=== PATIENT | male | born 1965 | race Caucasian/White ===

== ENCOUNTER 2018-09-20 16:58 | Observation (INO) ==
--- NOTE | 2018-09-20 17:51 | Emergency Department Note ---
Disposition Clinical Impression: Abdominal pain, Back pain, Chest pain Disposition: Still a Patient Condition: Fair Referrals: Elma Delacruz CNP [Primary Care Provider] - Forms: ED Satisfaction Letter, Work/School Release General Adult HPI - General Chief complaint: ED Abdominal Pain Stated complaint: Back / Abd Pain Time Seen by Provider: 09/20/18 17:05 Source: patient Limitations: no limitations - History of Present Illness Pain Scale: 10 - Related Data Home Medications Medication Instructions Recorded Confirmed Atorvastatin Calcium [Lipitor] 80 mg PO HS 04/19/16 08/16/16 Calcium Carbonate [Calcium] 500 mg PO BID 04/19/16 08/16/16 Cyclobenzaprine [Flexeril] 10 mg PO TID 04/19/16 08/16/16 Docusate [Colace] 100 mg PO BID 04/19/16 08/16/16 Duloxetine HCl [Cymbalta] 60 mg PO DAILY 04/19/16 08/16/16 Ergocalciferol (VITAMIN D2) 50,000 unit PO MO 04/19/16 08/16/16 [Vitamin D2 (50,000 UNIT)] Insulin DETEMIR [Levemir Flextouch] 30 unit SQ HS 04/19/16 08/16/16 Lisinopril [Zestril] 20 mg PO HS 04/19/16 08/16/16 Metformin HCl [Glucophage] 1,000 mg PO BID 04/19/16 08/16/16 Oxycodone HCl/Acetaminophen 1 tab PO Q6H PRN 04/19/16 08/16/16 [Percocet 7.5-325 mg Tablet] Pregabalin [Lyrica] 300 mg PO BID 04/19/16 08/16/16 diazePAM [Valium] 5 mg PO DAILY PRN 04/19/16 08/16/16 raNITIdine HCl [Zantac] 150 mg PO BID 04/19/16 08/16/16 FentaNYL PATCH [Duragesic] 25 mcg TD Q72H 06/14/16 08/16/16 Previous Rx's Medication Instructions Recorded OxyCODONE/APAP 5/325 [Percocet 1 each PO Q6HR PRN #26 tablet 08/16/16 5/325 MG] Allergies Allergy/AdvReac Type Severity Reaction Status Date / Time bee venom Allergy Anaphylaxis Uncoded 09/29/16 07:25 Past Medical History - Past Medical History Medical history: Reports: diabetes, GERD, hyperlipidemia, hypertension, other Surgical history: Reports: appendectomy, other Psychiatric history: Reports: depression - Social History Smoking Status: Current every day smoker Smokeless Tobacco Status: No Alcohol use: Reports: none Drug use: Reports: none Physical Exam - General Limitations: no limitations General appearance: alert, in no apparent distress Course Vital Signs Temperature 98.3 F 09/20/18 17:01 Pulse Rate 73 09/20/18 17:01 Respiratory Rate 18 09/20/18 17:01 Blood Pressure 123/70 09/20/18 17:01 O2 Sat by Pulse Oximetry 99 09/20/18 17:01 Temperature 98.2 F 09/20/18 20:35 Pulse Rate 68 09/20/18 20:35 Respiratory Rate 18 09/20/18 20:35 Blood Pressure 133/84 09/20/18 20:35 O2 Sat by Pulse Oximetry 95 09/20/18 20:35 Oxygen Delivery Oxygen Delivery Room Air Medical Decision Making - Lab Data Lab results reviewed: Yes I reviewed the patient's lab results. Result diagrams: 09/20/18 17:29 09/20/18 17:29 Lab Results 09/20/18 09/20/18 09/20/18 Range/Units 17:29 17:29 17:29 WBC 16.0 H (4.3-11.1) K/mcL RBC 4.86 (4.19-5.50) M/mcL Hgb 14.6 (12.9-16.9) g/dL Hct 43.8 (37.5-50.1) % MCV 90.1 (83.0-100.0) fL MCH 30.0 (28.0-33.3) pg MCHC 33.3 (31.6-35.5) g/dL RDW 12.5 (11.5-14.5) % Plt Count 350 (140-400) K/mcL MPV 8.7 L (9.4-12.4) fL Immature Gran % 0.5 (0-4) % Seg Neutrophils % 58.7 % Lymphocytes % 32.4 % Monocytes % 6.2 % Eosinophils % 1.9 % Basophils % 0.3 % Neutrophils # 9.4 H (1.6-8.9) K/mcL Lymphocytes # 5.2 H (0.6-4.6) K/mcL Monocytes # 1.0 (0.0-1.3) K/mcL Eosinophils # 0.3 (0.0-0.6) K/mcL Basophils # 0.1 (0.0-0.2) K/mcL Sodium 142 (136-145) mEq/L Potassium 3.6 (3.5-5.1) mEq/L Chloride 110 H (98-107) mEq/L Carbon Dioxide 23 (23-29) mEq/L BUN 10 (6-20) mg/dL Creatinine 0.65 L (0.70-1.30) mg/dL Est GFR ( Amer) > 60 (> 60) Est GFR (Non-Af Amer) > 60 (> 60) BUN/Creatinine Ratio 15 (6-26) Glucose 108 H (70-105) mg/dL Calculated Osmolality 294 (280-300) Calcium 9.7 (8.6-10.3) mg/dL Urine Color Yellow (Yellow) Urine Clarity Clear (Clear) Urine pH 7.5 (5.0-8.0) pH Units Ur Specific [place] 1.012 (1.010-1.025) Urine Protein Negative (Neg-Trace) mg/dL Urine Glucose (UA) Normal (Normal) mg/dL Urine Ketones Negative (Negative) mg/dL Urine Blood Negative (Negative) Urine Nitrite Negative (Negative) Urine Bilirubin Negative (Negative) Urine Urobilinogen Normal (Normal) mg/dL Ur Leukocyte Esterase Negative (Negative) Ur Culture Indicated? NO (NO) Attestation Statement - Attestation Attestation: I examined this patient and my medical decision-making was reviewed with the DOOR FRAME BUILDER/PA/Advanced Practice Nurse/Resident Physician. I agree with the documented findings, disposition and treatment plan as described except to the extent set forth below. Patient presents with bilateral lower abdominal pain mostly on the left which began gradually 3 days ago now sharp and constant. He does have some testicular pain. I did see blood in the urine prior to his arrival here. He does have a pain specialist with a pain contract. He does have a baclofen pump for chronic pain. He denies any dysuria or urinary frequency, penile discharge, blood in the stool. Did have a temperature 101.2 degrees orally 2 days ago but not since that time. He did use ibuprofen 800 mg at 1:00 today and acetaminophen around 4:00 in the morning. On my exam does have minimal to moderate pain bilateral lower abdomen and minimal pain and upper abdomen but does not have rigidity, rebound, guarding. CT scan, labs, results are pending. 1750 Patient did have a headache earlier but at this time has no headache whatsoever. He does have a neck fusion but in the amount that he is able to move his neck on my exam he does not have nuchal rigidity 1751 I did go back and speak with the patient again. He does have some left-sided chest pain. Initially told me it was present for only 6 months and only when he moves however further questioning stated this was new pain, recurrent pain started at 8:15 tonight's going on for 30 minutes straight, no associated diaphoresis or dyspnea. No exertional component. No pleuritic aspect. No pain or swelling of the lower extremities. He does have some pain with palpation left sternal border which causes minimal facial wincing so this certainly could be musculoskeletal but this is a 53-year-old man who is a smoker with a history of high blood pressure and high cholesterol so further cardiac evaluation will be started including a chest x-ray, EKG and troponin test. Care was transitioned to Dr. Renteria 2051 I did review the patient's EKG showing normal sinus rhythm with a rate of 63 and without acute ischemic change 2107
[2018-09-20 17:54] LABS: Bilirubin,Urine Negative (Negative); Blood,Urine Negative (Negative); Clarity,Urine Clear (Clear); Color,Urine Yellow (Yellow); Glucose,Urine (UA) Normal (Normal); Ketones,Urine Negative (Negative); Leukocyte Esterase,Urine Negative (Negative); Nitrite,Urine Negative (Negative); PH,Urine 7.5 pH Units (5.0-8.0); Protein,Urine Negative (Neg-Trace); Specific Gravity,Urine 1.012 (1.010-1.025); Urobilinogen,Urine Normal (Normal)
[2018-09-20 17:58] LABS: Basophils # 0.1 K/mcL (0.0-0.2); Basophils % 0.3 %; Eosinophils # 0.3 K/mcL (0.0-0.6); Eosinophils % 1.9 %; Hematocrit 43.8 % (37.5-50.1); Hemoglobin 14.6 g/dL (12.9-16.9); Immature Granulocytes % 0.5 % (0-4); Lymphocytes # 5.2 K/mcL (0.6-4.6); Lymphocytes % 32.4 %; Mean Corpuscular HGB Conc 33.3 g/dL (31.6-35.5); Mean Corpuscular Volume 90.1 fL (83.0-100.0); Mean Platelet Volume 8.7 fL (9.4-12.4); Monocytes % 6.2 %; Neutrophils # 9.4 K/mcL (1.6-8.9); Platelet Count 350 K/mcL (140-400); Red Blood Count 4.86 M/mcL (4.19-5.50); Red Cell Distribution Width 12.5 % (11.5-14.5); Segmented Neutrophils % 58.7 %
--- NOTE | 2018-09-20 18:03 | Emergency Department Note ---
Disposition Clinical Impression: Abdominal pain Qualifiers: Abdominal location: right lower quadrant Qualified Code(s): R10.31 - Right lower quadrant pain Back pain Qualifiers: Back pain location: low back pain Chronicity: acute Back pain laterality: right Sciatica presence: without sciatica Qualified Code(s): M54.5 - Low back pain Chest pain Qualifiers: Chest pain type: unspecified Qualified Code(s): R07.9 - Chest pain, unspecified Disposition: Still a Patient Condition: Fair Referrals: Elma Delacruz CNP [Primary Care Provider] - Forms: ED Satisfaction Letter, Work/School Release Time of Disposition: 20:55 General Adult HPI - General Chief complaint: ED Abdominal Pain Stated complaint: Back / Abd Pain Time Seen by Provider: 09/20/18 17:05 Source: patient Limitations: no limitations Nursing Notes Reviewed: Yes Vital Signs Reviewed: Yes - History of Present Illness HPI Narrative: 53 year old male presents for abdominal and back pain. Patient states that he's been having this pain for couple days but severely worsened today. Describes sharp throbbing pain that starts suprapubic region and radiates to RLQ and right low back. It is exacerbated by sitting and better with laying down. Patient went to see PCP today and was told there was a lot of blood in urine and sent to ED. Patient reports dysuria today. Also reports pain between the shoulder blades. Reports acid taste in mouth. Admits fever yesterday of 101, no fever since. Admits "a little" chest pain. Admits nausea without emesis. Admits headache that is now resolved. Admits worsened constipation. Denies shortness of breath, diarrhea. Patient reports medical history of chronic back pain treated with regular tylenol and ibuprofen, baclofen pump, and dual spine stimulator. Also reports diabetes, HTN, HLD, DDD. Denies history of kidney stones. Denies any blood thinner. Current smoker. Denies alcohol and drugs. Pain Scale: 10 - Related Data Home Medications Medication Instructions Recorded Confirmed Atorvastatin Calcium [Lipitor] 80 mg PO HS 04/19/16 08/16/16 Calcium Carbonate [Calcium] 500 mg PO BID 04/19/16 08/16/16 Cyclobenzaprine [Flexeril] 10 mg PO TID 04/19/16 08/16/16 Docusate [Colace] 100 mg PO BID 04/19/16 08/16/16 Duloxetine HCl [Cymbalta] 60 mg PO DAILY 04/19/16 08/16/16 Ergocalciferol (VITAMIN D2) 50,000 unit PO MO 04/19/16 08/16/16 [Vitamin D2 (50,000 UNIT)] Insulin DETEMIR [Levemir Flextouch] 30 unit SQ HS 04/19/16 08/16/16 Lisinopril [Zestril] 20 mg PO HS 04/19/16 08/16/16 Metformin HCl [Glucophage] 1,000 mg PO BID 04/19/16 08/16/16 Oxycodone HCl/Acetaminophen 1 tab PO Q6H PRN 04/19/16 08/16/16 [Percocet 7.5-325 mg Tablet] Pregabalin [Lyrica] 300 mg PO BID 04/19/16 08/16/16 diazePAM [Valium] 5 mg PO DAILY PRN 04/19/16 08/16/16 raNITIdine HCl [Zantac] 150 mg PO BID 04/19/16 08/16/16 FentaNYL PATCH [Duragesic] 25 mcg TD Q72H 06/14/16 08/16/16 Previous Rx's Medication Instructions Recorded OxyCODONE/APAP 5/325 [Percocet 1 each PO Q6HR PRN #26 tablet 08/16/16 5/325 MG] Allergies Allergy/AdvReac Type Severity Reaction Status Date / Time bee venom Allergy Anaphylaxis Uncoded 09/29/16 07:25 Constitutional: Denies: fever, chills Eyes: Denies: eye pain, eye discharge ENT ED: Denies: ear pain, throat pain Cardiovascular: Reports: chest pain. Denies: palpitations Respiratory: Denies: cough, dyspnea Gastrointestinal: Reports: abdominal pain, nausea Genitourinary: Reports: dysuria. Denies: urgency Musculoskeletal: Reports: back pain. Denies: neck pain Integumentary: Denies: rash, abrasion Neurological: Denies: headache, weakness Past Medical History - Past Medical History Medical history: Reports: diabetes, GERD, hyperlipidemia, hypertension, other Surgical history: Reports: appendectomy, other Psychiatric history: Reports: depression - Social History Smoking Status: Current every day smoker Smokeless Tobacco Status: No Alcohol use: Reports: none Drug use: Reports: none Physical Exam - General Limitations: no limitations General appearance: alert, in no apparent distress - Head Head exam: atraumatic, normocephalic - Eye Eye exam: Present: PERRL, EOMI - ENT ENT exam: normal oropharynx, mucous membranes moist - Neck Neck exam: Present: normal inspection - Chest Chest inspection: Present: normal inspection, symmetric chest wall rise - Respiratory Respiratory exam: Present: normal lung sounds bilaterally. Absent: respiratory distress - Cardiovascular Cardiovascular exam: Present: regular rate, normal rhythm - Abdominal Exam Abdominal exam: Present: soft, tenderness (pain in suprapubic and RLQ reproduced with palpation to epigastrium ), normal bowel sounds. Absent: distention, guarding, rebound, rigidity - Extremities Exam Extremities exam: Present: normal inspection. Absent: tenderness, pedal edema, joint swelling - Back Exam Back exam: Present: normal inspection, tenderness (tenderness to palpation of right low back ). Absent: muscle spasm - Neurological Exam Neurological exam: Present: alert, oriented X3 - Skin Skin exam: Present: warm, dry, intact, normal color Course Course Narrative: 53 year old male with history of chronic back pain presents for abdominal and back pain. Reports dysuria and had large amount of blood on UA. Patient is alert and oriented and hemodynamically stable. On exam, pain to suprapubic and RLQ abdomen are reproduced with palpation to epigastrium. Right low back pain is reproduced with palpation. Will check labwork and CT abd/pelvis. - Reevaluation(s) Reevaluation #1: CBC shows leukocytosis. BMP is unremarkable. UA is negative, there is no blood. CT abd/pelvis shows no stones or other source of hematuria. CT shows new possible mass of pancreas. Will check CT abd/pelvis with IV contrast. Will check lipase. Patient is informed of results. Patient voiced understanding. Patient states that pain is improved because he's been laying down. Time: 19:16 Reevaluation #2: Patient complains of chest pain that started at 20:[address] Will check EKG and trop. CXR shows atelectasis and central airway congestion. Time: 20:51 Reevaluation #3: CT abd/pelvis and cardiac eval pending. Will sign out to night team. Time: 20:53 Vital Signs Temperature 98.3 F 09/20/18 17:01 Pulse Rate 73 09/20/18 17:01 Respiratory Rate 18 09/20/18 17:01 Blood Pressure 123/70 09/20/18 17:01 O2 Sat by Pulse Oximetry 99 09/20/18 17:01 Temperature 98.2 F 09/20/18 20:35 Pulse Rate 68 09/20/18 20:35 Respiratory Rate 18 09/20/18 20:35 Blood Pressure 133/84 09/20/18 20:35 O2 Sat by Pulse Oximetry 95 09/20/18 20:35 Oxygen Delivery Oxygen Delivery Room Air Medical Decision Making - MDM Narrative Medical decision making narrative: Chest X-Ray 09/20/18 19:13 IMPRESSION: Shallow inflation with findings of subsegmental atelectasis and central airway congestion. No consolidation. D/ / Misbah Newton / Misbah Newton Interpreting Provider: Misbah Newton - Medical Records Medical records reviewed: Yes I reviewed the patient's medical records. - Lab Data Lab results reviewed: Yes I reviewed the patient's lab results. Result diagrams: 09/20/18 17:29 09/20/18 17:29 Lab Results 09/20/18 09/20/18 09/20/18 Range/Units 17:29 17:29 17:29 WBC 16.0 H (4.3-11.1) K/mcL RBC 4.86 (4.19-5.50) M/mcL Hgb 14.6 (12.9-16.9) g/dL Hct 43.8 (37.5-50.1) % MCV 90.1 (83.0-100.0) fL MCH 30.0 (28.0-33.3) pg MCHC 33.3 (31.6-35.5) g/dL RDW 12.5 (11.5-14.5) % Plt Count 350 (140-400) K/mcL MPV 8.7 L (9.4-12.4) fL Immature Gran % 0.5 (0-4) % Seg Neutrophils % 58.7 % Lymphocytes % 32.4 % Monocytes % 6.2 % Eosinophils % 1.9 % Basophils % 0.3 % Neutrophils # 9.4 H (1.6-8.9) K/mcL Lymphocytes # 5.2 H (0.6-4.6) K/mcL Monocytes # 1.0 (0.0-1.3) K/mcL Eosinophils # 0.3 (0.0-0.6) K/mcL Basophils # 0.1 (0.0-0.2) K/mcL Sodium 142 (136-145) mEq/L Potassium 3.6 (3.5-5.1) mEq/L Chloride 110 H (98-107) mEq/L Carbon Dioxide 23 (23-29) mEq/L BUN 10 (6-20) mg/dL Creatinine 0.65 L (0.70-1.30) mg/dL Est GFR ( Amer) > 60 (> 60) Est GFR (Non-Af Amer) > 60 (> 60) BUN/Creatinine Ratio 15 (6-26) Glucose 108 H (70-105) mg/dL Calculated Osmolality 294 (280-300) Calcium 9.7 (8.6-10.3) mg/dL Urine Color Yellow (Yellow) Urine Clarity Clear (Clear) Urine pH 7.5 (5.0-8.0) pH Units Ur Specific [place] 1.012 (1.010-1.025) Urine Protein Negative (Neg-Trace) mg/dL Urine Glucose (UA) Normal (Normal) mg/dL Urine Ketones Negative (Negative) mg/dL Urine Blood Negative (Negative) Urine Nitrite Negative (Negative) Urine Bilirubin Negative (Negative) Urine Urobilinogen Normal (Normal) mg/dL Ur Leukocyte Esterase Negative (Negative) Ur Culture Indicated? NO (NO) - Radiology Data Radiology results reviewed: Yes I reviewed the patient's radiology results.
[2018-09-20 18:14] LABS: BUN/Creatinine Ratio 15 (6-26); Blood Urea Nitrogen 10 mg/dL (6-20); Calcium 9.7 mg/dL (8.6-10.3); Carbon Dioxide 23 mEq/L (23-29); Chloride 110 mEq/L (98-107); Glucose 108 mg/dL (70-105); Osmolality,Calculated 294 (280-300); Potassium 3.6 mEq/L (3.5-5.1); Sodium 142 mEq/L (136-145); eGFR For Non-African Americans > 60 (> 60)
[2018-09-20] MEDS ORDERED: Isovue-370 500 ML INFUS..BTL IV ONE (19:13)
[2018-09-20 21:09] LABS: Troponin I < 0.03 ng/mL (< 0.04)
[2018-09-20 21:17] LABS: Lipase 9 Units/L (11-82)
--- NOTE | 2018-09-20 21:17 | Emergency Department Note ---
Disposition Clinical Impression: Abdominal pain Qualifiers: Abdominal location: right lower quadrant Qualified Code(s): R10.31 - Right lower quadrant pain Back pain Qualifiers: Back pain location: low back pain Chronicity: acute Back pain laterality: right Sciatica presence: without sciatica Qualified Code(s): M54.5 - Low back pain Chest pain Qualifiers: Chest pain type: unspecified Qualified Code(s): R07.9 - Chest pain, unspecified Disposition: Still a Patient Condition: Fair Referrals: Elma Delacruz CNP [Primary Care Provider] - Forms: ED Satisfaction Letter, Work/School Release Abdominal Pain HPI - General Chief Complaint: ED Abdominal Pain Stated Complaint: Back / Abd Pain Time Seen by Provider: 09/20/18 17:05 Source: patient Mode of arrival: ambulatory Limitations: no limitations Nursing Notes Reviewed: Yes Vital Signs Reviewed: Yes - History of Present Illness Pain Scale: 10 - Related Data Home Medications Medication Instructions Recorded Confirmed Atorvastatin Calcium [Lipitor] 80 mg PO HS 04/19/16 08/16/16 Calcium Carbonate [Calcium] 500 mg PO BID 04/19/16 08/16/16 Cyclobenzaprine [Flexeril] 10 mg PO TID 04/19/16 08/16/16 Docusate [Colace] 100 mg PO BID 04/19/16 08/16/16 Duloxetine HCl [Cymbalta] 60 mg PO DAILY 04/19/16 08/16/16 Ergocalciferol (VITAMIN D2) 50,000 unit PO MO 04/19/16 08/16/16 [Vitamin D2 (50,000 UNIT)] Insulin DETEMIR [Levemir Flextouch] 30 unit SQ HS 04/19/16 08/16/16 Lisinopril [Zestril] 20 mg PO HS 04/19/16 08/16/16 Metformin HCl [Glucophage] 1,000 mg PO BID 04/19/16 08/16/16 Oxycodone HCl/Acetaminophen 1 tab PO Q6H PRN 04/19/16 08/16/16 [Percocet 7.5-325 mg Tablet] Pregabalin [Lyrica] 300 mg PO BID 04/19/16 08/16/16 diazePAM [Valium] 5 mg PO DAILY PRN 04/19/16 08/16/16 raNITIdine HCl [Zantac] 150 mg PO BID 04/19/16 08/16/16 FentaNYL PATCH [Duragesic] 25 mcg TD Q72H 06/14/16 08/16/16 Previous Rx's Medication Instructions Recorded OxyCODONE/APAP 5/325 [Percocet 1 each PO Q6HR PRN #26 tablet 08/16/16 5/325 MG] Allergies Allergy/AdvReac Type Severity Reaction Status Date / Time bee venom Allergy Anaphylaxis Uncoded 09/29/16 07:25 Constitutional: Denies: fever, chills Eyes: Denies: eye pain, eye discharge ENT ED: Denies: ear pain, throat pain Cardiovascular: Reports: chest pain. Denies: palpitations Respiratory: Denies: cough, dyspnea Gastrointestinal: Reports: abdominal pain, nausea Genitourinary: Reports: dysuria. Denies: urgency Musculoskeletal: Reports: back pain. Denies: neck pain Integumentary: Denies: rash, abrasion Neurological: Denies: headache, weakness Abdominal Pain PMH - Past Medical History Medical history: Reports: diabetes, GERD, hyperlipidemia, hypertension, other Male Surgical History: Reports: appendectomy, other Psychiatric history: Reports: depression - Social History Smoking status: Current every day smoker Alcohol use: Reports: none Drug use: Reports: none Physical Exam - General Limitations: no limitations General appearance: alert, in no apparent distress Course Course Narrative: DID NOT SEE PATIENT. NOTE OPENED IN ERROR. Vital Signs Temperature 98.3 F 09/20/18 17:01 Pulse Rate 73 09/20/18 17:01 Respiratory Rate 18 09/20/18 17:01 Blood Pressure 123/70 09/20/18 17:01 O2 Sat by Pulse Oximetry 99 09/20/18 17:01 Temperature 98.2 F 09/20/18 20:35 Pulse Rate 68 09/20/18 20:35 Respiratory Rate 18 09/20/18 20:35 Blood Pressure 133/84 09/20/18 20:35 O2 Sat by Pulse Oximetry 95 09/20/18 20:35 Oxygen Delivery Oxygen Delivery Room Air Abdominal Pain - Lab Data Result diagrams: 09/20/18 17:29 09/20/18 17:29 Lab Results 09/20/18 09/20/18 09/20/18 Range/Units 17:29 17:29 17:29 WBC 16.0 H (4.3-11.1) K/mcL RBC 4.86 (4.19-5.50) M/mcL Hgb 14.6 (12.9-16.9) g/dL Hct 43.8 (37.5-50.1) % MCV 90.1 (83.0-100.0) fL MCH 30.0 (28.0-33.3) pg MCHC 33.3 (31.6-35.5) g/dL RDW 12.5 (11.5-14.5) % Plt Count 350 (140-400) K/mcL MPV 8.7 L (9.4-12.4) fL Immature Gran % 0.5 (0-4) % Seg Neutrophils % 58.7 % Lymphocytes % 32.4 % Monocytes % 6.2 % Eosinophils % 1.9 % Basophils % 0.3 % Neutrophils # 9.4 H (1.6-8.9) K/mcL Lymphocytes # 5.2 H (0.6-4.6) K/mcL Monocytes # 1.0 (0.0-1.3) K/mcL Eosinophils # 0.3 (0.0-0.6) K/mcL Basophils # 0.1 (0.0-0.2) K/mcL Sodium 142 (136-145) mEq/L Potassium 3.6 (3.5-5.1) mEq/L Chloride 110 H (98-107) mEq/L Carbon Dioxide 23 (23-29) mEq/L BUN 10 (6-20) mg/dL Creatinine 0.65 L (0.70-1.30) mg/dL Est GFR ( Amer) > 60 (> 60) Est GFR (Non-Af Amer) > 60 (> 60) BUN/Creatinine Ratio 15 (6-26) Glucose 108 H (70-105) mg/dL Calculated Osmolality 294 (280-300) Calcium 9.7 (8.6-10.3) mg/dL Troponin I < 0.03 (< 0.04) ng/mL Lipase 9 L (11-82) Units/L Urine Color Yellow (Yellow) Urine Clarity Clear (Clear) Urine pH 7.5 (5.0-8.0) pH Units Ur Specific [place] 1.012 (1.010-1.025) Urine Protein Negative (Neg-Trace) mg/dL Urine Glucose (UA) Normal (Normal) mg/dL Urine Ketones Negative (Negative) mg/dL Urine Blood Negative (Negative) Urine Nitrite Negative (Negative) Urine Bilirubin Negative (Negative) Urine Urobilinogen Normal (Normal) mg/dL Ur Leukocyte Esterase Negative (Negative) Ur Culture Indicated? NO (NO)
[2018-09-20] MEDS ORDERED: Naloxone 0.4 MG/ML INJ IVP PRN (22:39)
[2018-09-20] MEDS ORDERED: Acetaminophen 325 MG TABLET PO PRN (22:39)
--- NOTE | 2018-09-20 22:46 | Internal Med History&Physical ---
Date of Encounter: 09/21/18 Time of Encounter: 22:45 Internal Medicine - H&P: HPI Chief complaint: Abdominal Pain History of present illness: Mr. Terry is a 53 year old male with a past medical history of diabetes, hypertension and hyperlipidemia who presented to the ED with lower abdominal pain. Patient states Monday he began having left lower abdominal discomfort. Symptoms progressively got worse. Patient states pain is throbbing and constant which begins in the left lower quadrant and radiates across his lower abdomen to the right side and to his back. Pain is aggravated with sitting and alleviated when he lays down. No change with food. Patient reports 1 episode of watery diarrhea yesterday. Denies any dark tarry stools or blood in his stools. Sympt oms also associated with indigestion, bloating and nausea but no vomiting. He states he took his temperature the day before yesterday and found to be 101.2. Reports chills. Patient reports 1 episode of dysuria this afternoon. Subsequently went to see his nurse practitioner who sent him to the ED. Past Med Surg Social Fam HX - Past Medical History Medical history: diabetes, GERD, hyperlipidemia, hypertension, other Additional medical history: RCTS. DM II. LUMBAR 5/ HNP CAUSING STENOSIS. LUMBAR FACET ARTHROPATHY 3/4, 4/5, 5/. SEVERE CERVICAL STENOSIS 5/6, 6/7. FACET ARTHROPATHY THOUGHOUT CERVICAL SPINE. DISH Psychiatric history: depression - Past Surgical History Surgical History: appendectomy, other Additional surgical history: 10/2013 RIGHT THORACIC MASS REMOVAL. 01/2014 ACDF CERVICAL. 02/02/15 EPIDURAL INJECTION LOWER BACK. 10/30/14 L5-S1 LUMBAR FUSION @[facility]. 05/08/15 C2-3-4 CERVICAL STIMULATOR @[facility]. 08/26/15 EGD/COLONOSCOPY. 04/2015 DUAL SPINE CORD STIMULATOR. 2016 BCTR. NERVE ABLATION. 06/08/16 CYST REMOVED FROM LLE. 08/16/16 RIGHT FLANK MASS EXCISION @[facility]/DR [facility] - Social History Smoking Status: Current every day smoker Smokeless Tobacco Status: No Alcohol use: none Drug use: none - Family History Mother History Unknown: Yes Living Status: Still Living Father History Unknown: Yes Living Status: Still Living Internal Medicine - H&P: Meds Atorvastatin Calcium [Lipitor] 80 mg PO HS 04/19/16 [History] Calcium Carbonate [Calcium] 500 mg PO BID 04/19/16 [History] Docusate [Colace] 100 mg PO DAILY PRN 04/19/16 [History] Duloxetine HCl [Cymbalta] 60 mg PO BID 04/19/16 [History] Insulin DETEMIR [Levemir Flextouch] 28 unit SQ HS 04/19/16 [History] Lisinopril [Zestril] 20 mg PO HS 04/19/16 [History] Metformin HCl [Glucophage] 1,000 mg PO BID 04/19/16 [History] Pregabalin [Lyrica] 300 mg PO BID 04/19/16 [History] Aspirin [Lo-Dose Aspirin EC] 81 mg PO DAILY 09/20/18 [History] Ibuprofen 800 mg PO TID PRN 09/20/18 [History] Linagliptin [Tradjenta] 5 mg OP DAILY 09/20/18 [History] Pioglitazone HCl 30 mg PO DAILY 09/20/18 [History] Allergy/AdvReac Type Severity Reaction Status Date / Time bee venom Allergy Anaphylaxis Uncoded 09/29/16 07:25 All Systems PM: A 10-system review of systems was performed and is negative for pertinent findings except as documented above in the HPI. - Constitutional Constitutional: no chills, no fever(s), no night sweats - EENT Eyes: no change in vision, no discharge, no pain, no photophobia Ears: no ear discharge, no ear pain, no tinnitus Nose, mouth and throat: no dysphagia, no nasal discharge, no neck pain, no sore throat - Cardiovascular Cardiovascular ROS IM: no chest pain, no diaphoresis, no dyspnea, no lightheadedness, no palpitations, no syncope - Respiratory Respiratory: no cough, no dyspnea, no wheezing, no excessive phlegm production - Gastrointestinal Gastrointestinal: no abdominal pain, no diarrhea, no hematemesis, no hematochezia, no melena, no nausea, no vomiting - Musculoskeletal Musculoskeletal ROS IM: no numbness, no tingling - Integumentary Integumentary IM: no rash, no unusual bruising - Neurological Neurological ROS: no confusion, no convulsions, no focal weakness, no numbness, no tingling, no tremor(s) - Hematologic/Lymphatic Hematologic/Lymphatic: no easy bruising - Constitutional Vitals: Temp Pulse Resp BP Pulse Ox 98.2 F 68 18 133/84 95 09/20/18 20:35 09/20/18 20:35 09/20/18 20:35 09/20/18 20:35 09/20/18 20:35 Exam: General: Alert and oriented Skin:Normal color, no rash, no lesions. HEENT:EOM, pupils equal, round and reactive. Cardiovascular:Normal S1 & S2, no rubs, murmurs or gallops. No JVD. Pulse regular. Lungs:Normal breath sounds, no wheezes or crackles. Abdomen:Soft, with diffuse tenderness more prominent in the left lower quadrant, no rigidity or guarding. Extremities:No deformity, no edema or tenderness, no joint swelling or clubbing. Neurological:Normal cognition and motor skills. Pulses:Carotid and radial pulses normal +2. Positive Left-sided CVA tenderness; Rest of the physical exam is non contri butory Internal Med - H&P Results - Labs CBC & Chem 7: 09/21/18 04:36 09/21/18 04:36 Labs: Short CBC 09/20/18 Range/Units 17:29 WBC 16.0 H (4.3-11.1) K/mcL Hgb 14.6 (12.9-16.9) g/dL Hct 43.8 (37.5-50.1) % Plt Count 350 (140-400) K/mcL Neutrophils # 9.4 H (1.6-8.9) K/mcL BMP 09/20/18 17:29 Sodium 142 Potassium 3.6 Chloride 110 H Carbon Dioxide 23 BUN 10 Creatinine 0.65 L Glucose 108 H Calcium 9.7 Cardiac Enzymes 09/20/18 Range/Units 17:29 Troponin I < 0.03 (< 0.04) ng/mL Urine 09/20/18 Range/Units 17:29 Urine Color Yellow (Yellow) Urine Clarity Clear (Clear) Urine pH 7.5 (5.0-8.0) pH Units Ur Specific [place] 1.012 (1.010-1.025) Urine Protein Negative (Neg-Trace) mg/dL Urine Glucose (UA) Normal (Normal) mg/dL - Impressions ITS Impressions Abdomen/Pelvis CT 09/20/18 17:36 IMPRESSION: No acute inflammatory change or etiology for hematuria is demonstrated. No renal calculi. New rounded appearance of the tail the pancreas. An underlying mass can have this appearance. Further evaluation with contrast-enhanced CT is recommended. D/ / Misbah Newton / Misbah Newton Interpreting Provider: Misbah Newton Abdomen/Pelvis CT 09/20/18 19:13 IMPRESSION: Within the pancreatic tail, there is a subtle area of hypoenhancement, mainly seen on the arterial phase imaging. Although focal area of pancreatitis would be considered, there is only minimal if any peripancreatic fat stranding. A pancreatic mass is still of concern. At this point, prompt but nonemergent pancreatic MRI is recommended. Also correlate with any laboratory evidence pancreatitis. There are wedge-shaped areas of hypoenhancement within both kidneys (which were not visualized on the noncontrast scan from earlier). The appearance is most compatible with pyelonephritis. Renal infarcts would also be included in the differential, but this case that is considered less likely. Correlation with urinalysis is recommended. D/ / Ron Ascencio MD / Ron Ascencio MD Interpreting Provider: Ron Ascencio MD Chest X-Ray 09/20/18 19:13 IMPRESSION: Shallow inflation with findings of subsegmental atelectasis and central airway congestion. No consolidation. D/ / Misbah Newton / Misbah Newton Interpreting Provider: Misbah Newton - Assessment and plan (1) Abdominal pain Current Visit: Yes Status: Acute Assessment and plan: Left lower abdominal pain with radiation across the lower abdomen. CT scan s howed no evidence of small or large bowel abnormalities. There is findings on CT for possible pyelonephritis. Additionally, patient had significant left- sided CVA tenderness. However it could not be determined if this was secondary to his chronic back pain versus new CVA tenderness secondary to possible pyelonephritis. Area of hypoenhancement also seen within the pancreatic tail possibly secondary to pancreatitis the lipase levels were within normal limits. We will treat for pyelonephritis. Qualifiers: Abdominal location: left lower quadrant Qualified Code(s): R10.32 - Left lower quadrant pain (2) Abnormal finding on CT scan Current Visit: Yes Status: Acute Assessment and plan: Subtle area of hypoenhancement within the pancreatic tail seen on CT of the abdomen. Although focal area of pancreatitis would be considered, there is only minimal if any peripancreatic fat stranding. A pancreatic mass is still of concern. radiology is recommending MRI, however, due to patient's implanted nerve stimulator and pain pump he cannot have an MRI done. Consider further discussion with radiology on how to proceed. (3) Dysuria Current Visit: Yes Status: Acute Assessment and plan: Patient reports episodes of dysuria in the setting of elevated white blood. CT scan findings of possible pyelonephritis, though UA was unremarkable. Will start on IV antibiotics. We will obtain blood culture and urine culture (4) Diabetes Current Visit: Yes Status: Acute Assessment and plan: diabetic diet. Blood glucose checks. Insulin sliding scale. Qualifiers: Diabetes mellitus type: type 2 Qualified Code(s): E11.9 - Type 2 diabetes mellitus without complications (5) DISH (diffuse idiopathic skeletal hyperostosis) Current Visit: Yes Status: Acute (6) DVT prophylaxis Current Visit: Yes Status: Acute Assessment and plan: subcutaneous heparin - Time Spent With Patient Total time spent is greater than 50% in coordination of care (as documented) at patient's floor/unit and/or counseling patient:
[2018-09-20] MEDS: 0.9 % Sodium Chloride 1,000 ML IVC SCH (23:08)
[2018-09-20] MEDS: *HR* Heparin 5,000 UNIT/ML VIAL SQ SCH (23:09)
[2018-09-20] MEDS ORDERED: Dextrose Gel 15 GM/37.5 ML TUBE PO PRN ×2 (23:24)
[2018-09-20] MEDS ORDERED: D5% in Water 1,000 ML IVC PRN (23:24)
[2018-09-20] MEDS ORDERED: *HR* Dextrose 50 % in Water (Syg) 50 ML SYRINGE IVP PRN (23:24)
[2018-09-21] MEDS: Insulin LISPRO 300 UNITS/3 ML VIAL SQ SCH ×4 (00:03→16:08)
[2018-09-21] MEDS: Ketorolac 30 MG/ML VIAL IVP PRN ×4 (00:05→21:32)
[2018-09-21] MEDS: cefTRIAXone 1,000 MG in Water for inj. (sterile) 20 ML 10 ML IVPB SCH (00:05)
[2018-09-21] MEDS: OXYCODONE Oral CONC 10 MG/0.5 ML ORAL.SYG SL PRN ×3 (04:33→18:03)
[2018-09-21 05:09] LABS: Basophils # 0.1 K/mcL (0.0-0.2); Basophils % 0.4 %; Eosinophils # 0.4 K/mcL (0.0-0.6); Eosinophils % 3.3 %; Hemoglobin 13.9 g/dL (12.9-16.9); Immature Granulocytes % 0.5 % (0-4); Lymphocytes # 4.1 K/mcL (0.6-4.6); Lymphocytes % 35.3 %; Mean Corpuscular HGB Conc 32.3 g/dL (31.6-35.5); Mean Corpuscular Hemoglobin 29.5 pg (28.0-33.3); Mean Corpuscular Volume 91.3 fL (83.0-100.0); Mean Platelet Volume 8.7 fL (9.4-12.4); Monocytes # 0.8 K/mcL (0.0-1.3); Monocytes % 7.1 %; Neutrophils # 6.2 K/mcL (1.6-8.9); Platelet Count 321 K/mcL (140-400); Red Blood Count 4.71 M/mcL (4.19-5.50); Red Cell Distribution Width 12.7 % (11.5-14.5); Segmented Neutrophils % 53.4 %
[2018-09-21 05:15] LABS: Alanine Aminotransferase 9 Units/L (7-52); Albumin 3.9 g/dL (3.5-5.7); Albumin/Globulin Ratio 1.9 (1.1-2.2); Alkaline Phosphatase 73 Units/L (34-104); Aspartate Amino Transferase 9 Units/L (13-39); BUN/Creatinine Ratio 17 (6-26); Bilirubin,Total 0.5 mg/dL (0.3-1.0); Blood Urea Nitrogen 11 mg/dL (6-20); Calcium 9.1 mg/dL (8.6-10.3); Carbon Dioxide 23 mEq/L (23-29); Chloride 112 mEq/L (98-107); Globulin 2.1 g/dL (2.4-3.5); Glucose 142 mg/dL (70-105); Osmolality,Calculated 296 (280-300); Potassium 3.7 mEq/L (3.5-5.1); Sodium 142 mEq/L (136-145); eGFR For Non-African Americans > 60 (> 60)
[2018-09-21] MEDS: *HR* Heparin 5,000 UNIT/ML VIAL SQ SCH ×3 (05:27→21:32)
--- NOTE | 2018-09-21 08:10 | Internal Med Progress Note ---
Hospitalist Progress Note - Encounter Date of Encounter: 09/21/18 Time of Encounter: 08:09 - Subjective Interval History: Patient was seen and examined at bedside currently synovitis. He is tolerating his meals this time. Continues to experience right upper quadrant pain. Denies any other pain or discomfort at this time - Exam Vitals: Temp Pulse Resp BP Pulse Ox 98.5 F 54 16 106/68 93 09/21/18 07:47 09/21/18 07:47 09/21/18 07:47 09/21/18 07:47 09/21/18 07:47 Exam: General: Alert and oriented Skin:Normal color, no rash, no lesions. HEENT:EOM, pupils equal, round and reactive. Cardiovascular:Normal S1 & S2, no rubs, murmurs or gallops. No JVD. Pulse regular. Lungs:Normal breath sounds, no wheezes or crackles. Abdomen:Soft, with diffuse tenderness more prominent in the R upper quadrant, no rigidity or guarding. Extremities:No deformity, no edema or tenderness, no joint swelling or clubbing. Neurological:Normal cognition and motor skills. Pulses:Carotid and radial pulses normal +2. Positive Right-sided CVA tenderness; Rest of the physical exam is non contributory - Assessment and Plan (1) Abdominal pain Current Visit: Yes Status: Acute Assessment and Plan: Left lower abdominal pain with radiation across the lower abdomen. CT scan showed no evidence of small or large bowel abnormalities. There is findings on CT for possible pyelonephritis. Additionally, patient had significant left- sided CVA tenderness. However it could not be determined if this was secondary to his chronic back pain versus new CVA tenderness secondary to possible pyelonephritis. Area of hypoenhancement also seen within the pancreatic tail possibly secondary to pancreatitis the lipase levels were within normal limits. We will treat for pyelonephritis. 09/21 Above assessment patient was experiencing right upper abdominal tenderness which radiated across his lower abdomen. CT findings suggesting possible pyelonephritis T did have some right sided CVA tenderness however patient does have chronic back pain. There was also an area of hypoenhancement within the pancreatic tail possibly secondary to pancreatitis-lipase levels are normal. Patient does admit that he has been losing weight approximately 10 pounds within the past 4 weeks. He also has been experiencing some diarrhea which he states is unusual he normally has constipation -Treated pyelonephritis with Rocephin Unable to obtain MRI due to stimulator and pain pump we will obtain right upper quadrant ultrasound -GI has been consulted -We will obtain GI panel -Zofran for nausea continue with pain medications -Advance diet as tolerated (2) Abnormal finding on CT scan Current Visit: Yes Status: Acute Assessment and Plan: Subtle area of hypoenhancement within the pancreatic tail seen on CT of the abdomen. Although focal area of pancreatitis would be considered, there is only minimal if any peripancreatic fat stranding. A pancreatic mass is still of concern. radiology is recommending MRI, however, due to patient's implanted nerve stimulator and pain pump he cannot have an MRI done. Consider further discussion with radiology on how to proceed. 09/21 We will call pain clinic and see if stimulator is compatible with MRI We will obtain right upper quadrant ultrasound GIs been consulted and appreciate recommendations (3) Dysuria Current Visit: Yes Status: Acute Assessment and Plan: Patient reports episodes of dysuria in the setting of elevated white blood. CT scan findings of possible pyelonephritis, though UA was unremarkable. Will start on IV antibiotics. We will obtain blood culture and urine culture 09/21 Continue Rocephin (4) Diabetes Current Visit: Yes Status: Acute Assessment and Plan: diabetic diet. Blood glucose checks. Insulin sliding scale. -09/21 Continue Accu-Cheks before meals at bedtime with sliding scale insulin (5) DISH (diffuse idiopathic skeletal hyperostosis) Current Visit: Yes Status: Acute Assessment and Plan: 1 patient will follow-up with pain clinic as outpatient continue with baclofen pump as well as nerve stimulator (6) DVT prophylaxis Current Visit: Yes Status: Acute Assessment and Plan: subcutaneous heparin - Time Spent with Patient Total time spent is greater than 50% in coordination of care (as documented) at patient's floor/unit and/or counseling patient: Internal Medicine: Result - Labs CBC & Chem 7: 09/21/18 04:36 09/21/18 04:36 Labs: Short CBC 09/20/18 09/21/18 Range/Units 17:29 04:36 WBC 16.0 H 11.6 H (4.3-11.1) K/mcL Hgb 14.6 13.9 (12.9-16.9) g/dL Hct 43.8 43.0 (37.5-50.1) % Plt Count 350 321 (140-400) K/mcL Neutrophils # 9.4 H 6.2 (1.6-8.9) K/mcL BMP 09/20/18 09/21/18 17:29 04:36 Sodium 142 142 Potassium 3.6 3.7 Chloride 110 H 112 H Carbon Dioxide 23 23 BUN 10 11 Creatinine 0.65 L 0.65 L Glucose 108 H 142 H Calcium 9.7 9.1 Cardiac Enzymes 09/20/18 09/20/18 Range/Units 17:29 22:06 Troponin I < 0.03 < 0.03 (< 0.04) ng/mL Liver Function 09/21/18 Range/Units 04:36 Total Bilirubin 0.5 (0.3-1.0) mg/dL AST 9 L (13-39) Units/L ALT 9 (7-52) Units/L Alkaline Phosphatase 73 (34-104) Units/L Albumin 3.9 (3.5-5.7) g/dL Urine 09/20/18 Range/Units 17:29 Urine Color Yellow (Yellow) Urine Clarity Clear (Clear) Urine pH 7.5 (5.0-8.0) pH Units Ur Specific [place] 1.012 (1.010-1.025) Urine Protein Negative (Neg-Trace) mg/dL Urine Glucose (UA) Normal (Normal) mg/dL - Impressions Impressions Abdomen/Pelvis CT 09/20/18 17:36 IMPRESSION: No acute inflammatory change or etiology for hematuria is demonstrated. No renal calculi. New rounded appearance of the tail the pancreas. An underlying mass can have this appearance. Further evaluation with contrast-enhanced CT is recommended. D/ / Misbah Newton / Misbah Newton Interpreting Provider: Misbah Newton Abdomen/Pelvis CT 09/20/18 19:13 IMPRESSION: Within the pancreatic tail, there is a subtle area of hypoenhancement, mainly seen on the arterial phase imaging. Although focal area of pancreatitis would be considered, there is only minimal if any peripancreatic fat stranding. A pancreatic mass is still of concern. At this point, prompt but nonemergent pancreatic MRI is recommended. Also correlate with any laboratory evidence pancreatitis. There are wedge-shaped areas of hypoenhancement within both kidneys (which were not visualized on the noncontrast scan from earlier). The appearance is most compatible with pyelonephritis. Renal infarcts would also be included in the differential, but this case that is considered less likely. Correlation with urinalysis is recommended. D/ / Ron Ascencio MD / Ron Ascencio MD Interpreting Provider: Ron Ascencio MD Chest X-Ray 09/20/18 19:13 IMPRESSION: Shallow inflation with findings of subsegmental atelectasis and central airway congestion. No consolidation. D/ / Misbah Newton / Misbah Newton Interpreting Provider: Misbah Newton Consult Discharge Plan - Plan Referrals: Elma Delacruz, [facility] [Primary Care Provider] - (1) Abdominal pain Qualifiers: Abdominal location: left lower quadrant Qualified Code(s): R10.32 - Left lower quadrant pain (4) Diabetes Qualifiers: Diabetes mellitus type: type 2 Qualified Code(s): E11.9 - Type 2 diabetes mellitus without complications
[2018-09-21] MEDS: 0.9 % Sodium Chloride 1,000 ML IVC SCH (09:07)
[2018-09-21] MEDS: Aspirin Enteric Coated 81 MG Tablet PO SCH (09:07)
--- NOTE | 2018-09-21 10:40 | Gastroenterology Consult Note ---
<Kostas Kearney - Last Filed: 09/21/18 10:38> Date of Encounter: 09/21/18 Time of Encounter: 10:38 - Assessment and plan (1) Abnormal finding on CT scan Status: Acute Assessment and plan: CT reveals small area of hypo-enhancement within the pancreatic tail measuring 1.8 cm. No other lesions noted. Unclear the etiology of this lesion, inflammation versus malignancy. At this point inflammation is felt to be less likely. Recommend slowly advancing diet as tolerated. Will check CA-19-9. Follow-up with GI as an outpatient for endoscopic ultrasound for further characterization of this lesion. - Time Spent With Patient Total time spent is greater than 50% in coordination of care (as documented) at patient's floor/unit and/or counseling patient: GI History of Present Illness - Data of Consult Patient: new to practice Consult date: 09/21/18 Requesting Physician: Yordy Hdez MD - Consult Narrative Reason for consult: Pancreatic Tail Mass History of present illness: Mr. Terry is a 53 year old male with history of type 2 diabetes who presents with left lower quadrant abdominal pain. Patient states that the abdominal pain started several days prior to arrival and had started as left lower quadrant and move towards the midline. He denies any nausea or vomiting or diarrhea. He states he has never had anything like this before. He states at times the pain radiates to his back. He reports a 10 pound unintentional weight loss in the last month. He denies any personal history of pancreatitis. Colonoscopy: Unknown EGD: Unknown Past Med Surg Social Fam HX - Past Medical History Medical history: diabetes, GERD, hyperlipidemia, hypertension, other Additional medical history: RCTS. DM II. LUMBAR 5/1 HNP CAUSING STENOSIS. LUMBAR FACET ARTHROPATHY 3/4, 4/5, 5/1. SEVERE CERVICAL STENOSIS 5/6, 6/7. FACET ARTHROPATHY THOUGHOUT CERVICAL SPINE. DISH Psychiatric history: depression - Past Surgical History Surgical History: appendectomy, other Additional surgical history: 10/2013 RIGHT THORACIC MASS REMOVAL. 01/2014 ACDF CERVICAL. 02/02/15 EPIDURAL INJECTION LOWER BACK. 10/30/14 L5-S1 LUMBAR FUSION @[facility]. 05/08/15 C2-3-4 CERVICAL STIMULATOR @[facility]. 08/26/15 EGD/COLONOSCOPY. 04/2015 DUAL SPINE CORD STIMULATOR. 2016 BCTR. NERVE ABLATION. 06/08/16 CYST REMOVED FROM LLE. 08/16/16 RIGHT FLANK MASS EXCISION @[facility]/DR [facility] - Social History Smoking Status: Current every day smoker Packs per day: 0.5 Smokeless Tobacco Status: No Alcohol use: none Drug use: none - Family History Father History Unknown: Yes Living Status: Still Living Mother History Unknown: Yes Living Status: Still Living All systems PM: reviewed and no additional remarkable complaints except as stated - Constitutional Vitals: Temp Pulse Resp BP Pulse Ox 98.5 F 54 16 106/68 93 09/21/18 07:47 09/21/18 07:47 09/21/18 07:47 09/21/18 07:47 09/21/18 07:47 General appearance: Present: A&O X 3, pleasant, no acute distress - Head Head exam: Present: atraumatic, normal inspection, normocephalic - Respiratory Respiratory exam: Present: CTAB. Absent: rales, rhonchi, wheezes - Cardiovascular Cardiovascular exam: Present: RRR. Absent: gallop, rubs, systolic murmur - GI/Abdominal GI/Abdominal exam: Present: normal bowel sounds, soft, tenderness (mild periumbilical, LLQ, RUQ), no peritoneal signs. Absent: distended - Extremities Exam Extremities exam: Present: warm. Absent: pedal edema, tenderness Results - Labs CBC & Chem 7: 09/21/18 04:36 09/21/18 04:36 Labs: Last Result Calcium 9.1 mg/dL (8.6-10.3) 09/21/18 04:36 Troponin I < 0.03 ng/mL (< 0.04) 09/20/18 22:06 Entire Visit Hgb 13.9 g/dL (12.9-16.9) 09/21/18 04:36 Hct 43.0 % (37.5-50.1) 09/21/18 04:36 Total Bilirubin 0.5 mg/dL (0.3-1.0) 09/21/18 04:36 AST 9 Units/L (13-39) L 09/21/18 04:36 ALT 9 Units/L (7-52) 09/21/18 04:36 Lipase 9 Units/L (11-82) L 09/20/18 17:29 - Impressions Impressions Abdomen/Pelvis CT 09/20/18 17:36 IMPRESSION: No acute inflammatory change or etiology for hematuria is demonstrated. No renal calculi. New rounded appearance of the tail the pancreas. An underlying mass can have this appearance. Further evaluation with contrast-enhanced CT is recommended. D/ / Misbah Newton / Misbah Newton Interpreting Provider: Misbah Newton Abdomen/Pelvis CT 09/20/18 19:13 IMPRESSION: Within the pancreatic tail, there is a subtle area of hypoenhancement, mainly seen on the arterial phase imaging. Although focal area of pancreatitis would be considered, there is only minimal if any peripancreatic fat stranding. A pancreatic mass is still of concern. At this point, prompt but nonemergent pancreatic MRI is recommended. Also correlate with any laboratory evidence pancreatitis. There are wedge-shaped areas of hypoenhancement within both kidneys (which were not visualized on the noncontrast scan from earlier). The appearance is most compatible with pyelonephritis. Renal infarcts would also be included in the differential, but this case that is considered less likely. Correlation with urinalysis is recommended. D/ / Ron Ascencio MD / Ron Ascencio MD Interpreting Provider: Ron Ascencio MD Chest X-Ray 09/20/18 19:13 IMPRESSION: Shallow inflation with findings of subsegmental atelectasis and central airway congestion. No consolidation. D/ / Misbah Newton / Misbah Newton Interpreting Provider: Misbah Newton Consult Discharge Plan - Plan Instructions: Omeprazole (By mouth), Levofloxacin (By mouth), Acute Abdominal Pain (DC) Referrals: [facility] [Provider Group] (An appointment has been requested. The office will contact you at home with an appoinment. ) Elma Delacruz, [employer] [Primary Care Provider] - (An appointment has been requested. The office will contact you at home to schedule an appointment. ) Prescriptions: Levofloxacin [Levaquin] 750 mg PO DAILY #3 tablet Omeprazole [PriLOSEC] 20 mg PO DAILY #30 cap <Nic Ceja - Last Filed: 09/25/18 08:59> Date of Encounter: 09/21/18 - Time Spent With Patient Total time spent is greater than 50% in coordination of care (as documented) at patient's floor/unit and/or counseling patient: GI History of Present Illness - Data of Consult Requesting Physician: Yordy Hdez MD - Consult Narrative History of present illness: Mr. Terry is a 53 year old male - Constitutional Vitals: Temp Pulse Resp BP Pulse Ox 98.8 F 77 16 114/70 100 09/22/18 10:51 09/22/18 10:51 09/22/18 10:51 09/22/18 10:51 09/22/18 10:51 Results - Labs CBC & Chem 7: 09/22/18 03:09 09/22/18 03:09 Labs: Last Result Calcium 8.3 mg/dL (8.6-10.3) L 09/22/18 03:09 Troponin I < 0.03 ng/mL (< 0.04) 09/20/18 22:06 Entire Visit Hgb 12.7 g/dL (12.9-16.9) L 09/22/18 03:09 Hct 40.4 % (37.5-50.1) 09/22/18 03:09 Total Bilirubin 0.5 mg/dL (0.3-1.0) 09/21/18 04:36 AST 9 Units/L (13-39) L 09/21/18 04:36 ALT 9 Units/L (7-52) 09/21/18 04:36 Lipase 9 Units/L (11-82) L 09/20/18 17:29 CA 19-9 Antigen 7 U/mL (0-37) 09/20/18 17:29 - Attending Attestation I examined this patient and my medical decision-making was reviewed with the Resident Physician. I agree with the documented findings, disposition and treatment plan as described except to the extent set forth below. Pt seen. Comapint of non speicif abd pain. O/E Abd soft mild non specific tanderness. A: Pt with abn imaging with poss lesion panc tail Rec: EUS out pt
[2018-09-21 15:42] LABS: Bilirubin,Urine Negative (Negative); Blood,Urine Negative (Negative); Clarity,Urine Clear (Clear); Color,Urine Yellow (Yellow); Glucose,Urine (UA) Normal (Normal); Ketones,Urine Trace mg/dL (Negative); Leukocyte Esterase,Urine Negative (Negative); Nitrite,Urine Negative (Negative); PH,Urine 5.5 pH Units (5.0-8.0); Protein,Urine Trace mg/dL (Neg-Trace); Specific Gravity,Urine 1.025 (1.010-1.025); Urobilinogen,Urine Normal (Normal)
[2018-09-21 15:47] LABS: Bacteria,Urine None Seen per hpf (None-Few); Hyaline Casts,Urine Few per lpf (None-Few); RBC,Urine 0-3 per hpf (0-3); Squamous Epithelial Cell,Urine Many per lpf (None-Few)
--- NOTE | 2018-09-21 17:29 | Electrocardiograph Report ---
[address] [place] [address] Test Date: 2018-09-20 Pat Name: Dionisio Terry Department: EXAMC3 Room: 3B Gender: M Sticker Hand: : 1965 Requested By: Audrey Choudhary Order Number: [id number] Reading MD: Beck Echavarria Measurements Intervals [place] Rate: 63 P: 51 MA: 161 QRS: 77 QRSD: 119 T: 54 QT: 423 QTc: 433 Interpretive Statements Sinus rhythm Nonspecific intraventricular conduction delay Electronically Signed On 09-21-2018 17:27:45 EST by Beck Echavarria
[2018-09-21] MEDS ORDERED: Lisinopril 20 MG TABLET PO SCH (21:00)
[2018-09-22] MEDS: cefTRIAXone 1,000 MG in Water for inj. (sterile) 20 ML 10 ML IVPB SCH (01:18)
[2018-09-22 04:41] LABS: Basophils % 0.5 %; Eosinophils # 0.4 K/mcL (0.0-0.6); Eosinophils % 4.1 %; Hematocrit 40.4 % (37.5-50.1); Hemoglobin 12.7 g/dL (12.9-16.9); Immature Granulocytes % 0.3 % (0-4); Lymphocytes # 3.8 K/mcL (0.6-4.6); Lymphocytes % 44.2 %; Mean Corpuscular HGB Conc 31.4 g/dL (31.6-35.5); Mean Corpuscular Hemoglobin 29.5 pg (28.0-33.3); Mean Corpuscular Volume 93.7 fL (83.0-100.0); Mean Platelet Volume 9.1 fL (9.4-12.4); Monocytes # 0.5 K/mcL (0.0-1.3); Monocytes % 6.2 %; Neutrophils # 3.9 K/mcL (1.6-8.9); Platelet Count 301 K/mcL (140-400); Red Blood Count 4.31 M/mcL (4.19-5.50); Red Cell Distribution Width 12.6 % (11.5-14.5); Segmented Neutrophils % 44.7 %
[2018-09-22 04:53] LABS: BUN/Creatinine Ratio 25 (6-26); Blood Urea Nitrogen 16 mg/dL (6-20); Calcium 8.3 mg/dL (8.6-10.3); Carbon Dioxide 23 mEq/L (23-29); Chloride 111 mEq/L (98-107); Glucose 153 mg/dL (70-105); Osmolality,Calculated 296 (280-300); Potassium 3.9 mEq/L (3.5-5.1); Sodium 141 mEq/L (136-145); eGFR For Non-African Americans > 60 (> 60)
[2018-09-22] MEDS: *HR* Heparin 5,000 UNIT/ML VIAL SQ SCH (06:01)
[2018-09-22] MEDS: Insulin LISPRO 300 UNITS/3 ML VIAL SQ SCH (08:11)
[2018-09-22] MEDS: Aspirin Enteric Coated 81 MG Tablet PO SCH (09:00)
[2018-09-22] MEDS: Ketorolac 30 MG/ML VIAL IVP PRN (09:03)
[2018-09-22 10:56] VITALS: BP 114/70
--- NOTE | 2018-09-22 12:02 | Discharge Summary ---
- NOTES TO OUTPATIENT PROVIDER Notes to Outpatient Provider: Patient presented with abdominal pain-did have some dysuria elevated white count CT scan findings possible pyelonephritis UA was unremarkable he was given IV antibiotics and will continue with Levaquin's outpatient. CT of abdomen did not reveal hypoenhancement within the pancreatic tail -inflammation versus malignancy was seen by GI and would like to follow up as an outpatient for endoscopic ultrasound Orders not resulted at time of discharge: Pending orders 09/20/18 17:12 Culture,Urine [RM] Stat 09/20/18 23:08 Culture,Blood [BC] Stat 09/21/18 10:37 Cancer Antigen-GI (CA 19-9) Routine Date of Encounter: 09/22/18 Time of Encounter: 11:56 - Discharge Diagnosis (1) Abnormal finding on CT scan Priority: Primary Status: Acute (2) Diabetes Priority: Secondary Status: Acute Qualifiers: Diabetes mellitus type: type 2 Diabetes mellitus outreach and education social worker insulin use: without nursing home use Diabetes mellitus complication status: without complication Qualified Code(s): E11.9 - Type 2 diabetes mellitus without complications (3) Dysuria Priority: Secondary Status: Acute Hospital course: Mr. Terry is a 53 year old male who has no history of diabetes hypertension hyperlipidemia GERD chronic back pain with baclofen pomp and spinal cord stimulator-presented to [facility] ED with lower abdominal pain which he states started on Monday. He did have 1 episode of watery diarrhea no fever associated symptoms of indigestion bloating nausea but no vomiting -he did have elevated temperature at home and has been experiencing dysuria. Lab work did show an elevated white count urinalysis was unremarkable CT of abdomen suspicious for pyelonephritis he did have right-sided CVA tenderness. Abdominal CT also revealed subtle area of hyperintense enhancement within the pancreatic tail inflammation versus malignancy patient unable to undergo MRI of abdomen due to neurostimulator hepatic panel within normal limits lipase normal. GI was consulted recommending outpatient follow-up for endoscopic ultrasound for further characterization of pancreatic lesion. Patient was initiated on IV antibiotics his nausea did improve use been able tolerate food. No fevers white count trending down and all pain improving. We will send patient home with prescription Levaquin as well as Prilosec since patient experiencing GERD symptoms. Advised patient to follow-up with GI as well as primary care provider since his providing this medicine can adjust medications accordingly. Patient verbalizes understanding He is hemodynamically stable at this time he is ready for discharge. - Time Spent with Patient Total time spent providing and/or coordinating discharge services: - Discharge Medications Prescriptions: Levofloxacin [Levaquin] 750 mg PO DAILY #3 tablet Omeprazole [PriLOSEC] 20 mg PO DAILY #30 cap Home Medications: Atorvastatin Calcium [Lipitor] 80 mg PO HS 04/19/16 [History] Calcium Carbonate [Calcium] 500 mg PO BID 04/19/16 [History] Docusate [Colace] 100 mg PO DAILY PRN 04/19/16 [History] Duloxetine HCl [Cymbalta] 60 mg PO BID 04/19/16 [History] Insulin DETEMIR [Levemir Flextouch] 28 unit SQ HS 04/19/16 [History] Lisinopril [Zestril] 20 mg PO HS 04/19/16 [History] Metformin HCl [Glucophage] 1,000 mg PO BID 04/19/16 [History] Aspirin [Lo-Dose Aspirin EC] 81 mg PO DAILY 09/20/18 [History] Ibuprofen 800 mg PO TID PRN 09/20/18 [History] Linagliptin [Tradjenta] 5 mg OP DAILY 09/20/18 [History] Pioglitazone HCl 30 mg PO DAILY 09/20/18 [History] Pregabalin [Lyrica] 200 mg PO BID 09/21/18 [History] Ranitidine HCl [Acid Cashier Or Checker Stock Clerk] 150 mg PO BID 09/21/18 [History] Levofloxacin [Levaquin] 750 mg PO DAILY #3 tablet 09/22/18 [Rx] Omeprazole [PriLOSEC] 20 mg PO DAILY #30 cap 09/22/18 [Rx] Allergies/Adverse Reactions: Allergy/AdvReac Type Severity Reaction Status Date / Time bee venom Allergy Anaphylaxis Uncoded 09/29/16 07:25 Date of admission: 09/20/18 21:44 Primary care physician: Elma Delacruz CNP Consults: 09/21/18 09:10 Consult to Gastroenterology [CONS] Routine Consulting Provider: [facility] Reason for Consult: R upper quad pain-pancreatic mass Time Notified: 09:11 Call Completed: Yes Discharging clinician: Abby Reyes Anticipated date of discharge: 09/22/18 - Constitutional Vitals: Temp Pulse Resp BP Pulse Ox 98.8 F 77 16 114/70 100 09/22/18 10:51 09/22/18 10:51 09/22/18 10:51 09/22/18 10:51 09/22/18 10:51 General appearance: Present: A&O X 3 Exam: , - Head Head exam: Present: atraumatic, normocephalic - Eye Eye exam: Present: PERRL, conjuntiva pink, sclera anicteric Pupils: Present: PERRL - Neck Neck exam general surgery: Present: supple, trachea midline. Absent: lymphadenopathy - Respiratory Respiratory exam: Present: CTAB. Absent: accessory muscle use, rales, rhonchi, wheezes - Cardiovascular Cardiovascular exam: Present: RRR, +S1, +S2. Absent: diastolic murmur, gallop, rubs, systolic murmur - GI/Abdominal GI/Abdominal exam: Present: normal bowel sounds, soft, tenderness, no peritoneal signs. Absent: distended Additional comments: Slight tenderness in right upper quadrant - Extremities Exam Extremities exam: Present: warm, radial pulses palpable and symmetrical. Absent: calf tenderness, cyanotic, pedal edema - Neurological Exam Neurological exam: Present: CN II-XII intact, oriented X3, no focal deficits. Absent: pronater drift, facial droop, speech deficit - Skin Skin exam: Present: dry, intact - Patient Status Disposition: Home, Self-Care Condition: Fair Functional capacity at discharge: independent ambulation - Discharge Instructions Instructions: Acute Abdominal Pain (DC) Follow Up With: [facility] [Provider Group] (An appointment has been requested. The office will contact you at home with an appoinment. ) Elma Delacruz CNP [Primary Care Provider] - (An appointment has been requested. The office will contact you at home to schedule an appointment. ) - Diet and Activity Activity: increase activity as tolerated Diet: diabetic diet
== END 2018-09-22 13:08 | disposition home or self-care (01) ==
LOC: 3BNU 16:58 → EMEROOARM 16:58 → 3BNU 22:40
PROVIDERS: ADMIT Internal Medicine; ATTEND Internal Medicine